=== PATIENT | female | born 1970 | race Caucasian/White ===

== ENCOUNTER 2018-07-14 08:23 | Emergency (ER) | payer SELFPAY ==
[2018-07-14 08:25] VITALS: BP 129/93; PULSE 118; RESP 20; TEMP 36.3; O2SAT 100
--- NOTE | 2018-07-14 08:25 | ED.GENADUL_ITS ---
Discharge Plan Disposition Patient Disposition: HOME Condition: Good Discharge Details Chief Complaint: Laceration Clinical Impression: Bleeding from varicose vein Primary Care Provider: None,None ED Provider: Lilibeth Ivy Home Meds and New Rx's Prescriptions: No Action No Known Home Meds RF: 0 Discharge Instructions Instructions: Varicose Veins (ED) Additional Instructions: Remove the dressing slowly in 2 days. If you have rebleeding of the area, apply cold compress and pressure dressing to stop the bleeding. Follow-up with your primary care doctor in 2 days for reevaluation. Return immediately to the emergency department if you have any worsening or new concerning symptoms such as persistent bleeding, dizziness, shortness of breath or any other concerns. Stand Alone Forms: Work Release Discharge Data Discharge Physician: Lilibeth Ivy Medical Decision Making 48-year-old female presents with bleeding varicose vein since this morning. Denies any complaints at this time. Heart rate 110s. Blood pressure and remainder vitals within normal limits. Patient appears comfortable and relaxed. Large amount of blood proximally 500 cc loss per EMS and patient. Large pressure dressing placed by EMS. Dressing removed and varicose vein bleeding stopped. Area of bleeding is approximately 1 mm. Will apply Surgicel and covered with pressure dressing in case of rebleeding. Due to tachycardia, will give bolus IV fluids and check screening labs, hemoglobin and coagulation studies. 0920 --labs reviewed. Hemoglobin 11.3, normal coagulation studies. Glucose 231. Due to significant amount of reported bleeding, will check a repeat hemoglobin at the 3-hour svetlana from onset. 1045 --repeat hemoglobin stable at 11.2. Patient feels good to go home at this time. Patient is instructed to keep the dressing in place for the next 2 days, and to remove slowly and to reapply pressure dressing if bleeding returns. We will have patient follow-up with the primary care doctor for reevaluation and to return here if worse. HPI General Mode of arrival: ambulatory . Date/Time Provider Initiated Documentation: 07/14/18 08:24 . Limitations to Documentation: no limitations . Information obtained by: patient . HPI Narrative: Patient is a 48-year-old female presents for bleeding varicose vein since 1 to 2 hours ago this morning while getting ready for work. Patient states she was standing in the bathroom when she looked down and saw that there is a large amount of blood coming from a vein in her left leg. She states she lost approximately half a liter of blood on the bathroom floor. EMS arrived and applied a pressure dressing. Patient did complain of some dizziness to EMS but denies any complaints at this time. She denies headache, dizziness, chest pain, shortness of breath. She denies any known trauma or injury to her leg. She is not on any blood thinners. Related Data Home Medications Medication Instructions Recorded Confirmed Unknown [No Known Home Meds] 07/14/18 07/14/18 Allergies Allergy/AdvReac Type Severity Reaction Status Date / Time No Known Allergies Allergy Unverified 07/14/18 08:31 Review of Systems Review of Systems All systems reviewed & are unremarkable except as noted in HPI and below Constitutional Reports as per HPI, Denies chills and Denies fever(s) Eyes Denies blurry vision ENT Denies dizziness, Denies sore throat and Denies throat swelling Cardiovascular Denies chest pain and Denies dyspnea Respiratory Denies cough and Denies dyspnea Gastrointestinal Denies abdominal pain, Denies diarrhea and Denies vomiting Genitourinary Denies hematuria and Denies dysuria Musculoskeletal Denies back pain and Denies numbness Integumentary/Breasts Denies lesions and Denies rash Neurologic Denies dizziness, Denies focal weakness and Denies numbness Allergic/Immunologic Denies throat swelling [facility] Medical History No significant past medical history (Acute) Surgical History No significant past surgical history (Acute) Social History Smoking/Tobacco Use Status: Never Alcohol Intake: current Alcohol Intake frequency: 3 or more drinks per day Alcohol type: beer Substance use type: does not use Do you feel safe at home: Yes Do you feel safe in your relationship?: Yes Exam Const General: cooperative, healthy appearing and no acute distress HENMT Head: normal to inspection Face and sinus: normal facial exam Eyes General: appearance normal, both eyes and all related structures EOM: EOM intact bilaterally Neck Neck: normal visual inspection and No submandibular swelling Lymphatic: no lymphadenopathy noted Chest Chest: normal inspection of the chest and no tenderness Resp Effort & Inspection: normal respiratory effort and able to speak in complete sentences Auscultation: clear to auscultation bilaterally Cardio Rate: regular rate Rhythm: regular rhythm GI Inspection: normal to inspection Palpation: soft, not firm, not rigid and nontender Auscultation: normal bowel sounds Skin Rashes: no rashes Neuro General: alert, awake and oriented x3 Cognition: normal cognition Speech: speech normal Motor: muscle tone normal throughout Sensory Exam: no sensory deficits noted Extrem Knee images: 1. 2mm x 2mm raised ecchymotic lesion with 1mm central pinpoint crust consistent previous site of bleeding now stopped located on L medial proximal leg just inferior to knee. No surrounding erythema, edema, induration or fluctuance. Psych Appearance: grossly normal Mental Status: mental status grossly normal Speech and Movement: speech and movement normal Affect: normal affect
[2018-07-14] MEDS: Cellulose,Oxidized 2X3 PKT 1 EACH MC (08:58)
[2018-07-14 09:02] LABS: Abs Immature Grans 0.03 k/cumm (0.0-0.09); Absolute Basophil Count 0.02 k/cumm (0.0-0.2); Absolute Eosinophil Count 0.09 k/cumm (0.0-0.7); Absolute Lymphocyte Count 1.32 k/cumm (1.2-3.4); Absolute Monocyte Count 0.38 k/cumm (0.11-0.7); Absolute Neutrophil Count 5.05 k/cumm (1.2-6.7); Basophils % 0.3; Eosinophils % 1.3; HCT 35.3 % (36.0-46.0); HGB 11.3 g/dL (12.0-15.5); Immature Grans % 0.4; Lymphocytes % 19.2; Mean Corpuscular Volume 93.6 fL (80-95); Mean Platelet Volume 9.4 fL (8.0-11.0); Monocytes % 5.5; Neutrophils % 73.3; Platelet Count 226 x1000/uL (130-400); RBC 3.77 m/cumm (4.00-5.20); RBC Distribution Width 14.5 % (11.7-14.6); White Blood Cell Count 6.89 k/cumm (4.4-10.8)
[2018-07-14 09:08] LABS: Anion Gap 9.3 mmol/L (3-11); BUN 13 mg/dL (7-18); CO2 23.7 mmol/L (21.0-32.0); CREATININE 0.62 mg/dL (0.55-1.02); Chloride 105 mmol/L (98-107); Glucose 231 mg/dL (70-100); Potassium 3.8 mmol/L (3.5-5.1); Sodium 138 mmol/L (136-145)
[2018-07-14 09:15] LABS: INR 0.9 (0.9-1.1); PTT Activated 22.5 sec (21.0-31.4); Prothrombin Time 9.2 sec (9.3-11.0)
[2018-07-14 10:33] LABS: HCT 34.5 % (36.0-46.0); HGB 11.2 g/dL (12.0-15.5)
[2018-07-14 11:26] VITALS: BP 129/80; PULSE 104; RESP 20; TEMP 36.7; O2SAT 100
== END 2018-07-14 11:27 | disposition home or self-care (01) ==
PROVIDERS: Emergency Provider Physician Assistant
DX: I83.892 Varicose veins of left lower extremity with other complications (principal); R00.0 Tachycardia, unspecified
CPT/HCPCS: 36415; 80048; 99283; 85014; 85018; 85025; 85610; 85730